=== PATIENT | female | born 1980 | race Two or more races ===

== ENCOUNTER 2016-09-22 12:53 | Emergency (ER) | payer OTHER ==
[~2016-09-22 12:53] MED LIST: BENTYL20 MG PO; PHENERGAN25 MG PO
[2016-09-22 14:23] LABS: URINE SOURCE CLEAN CATCH
[2016-09-22 14:27] LABS: URINE APPEARANCE TURBID; URINE BILIRUBIN NEG (NEG); URINE BLOOD NEG (NEG); URINE COLOR YELLOW; URINE GLUCOSE NEG (NEG); URINE KETONE NEG (NEG); URINE LEUKOCYTE ESTERASE 2+ (NEG); URINE NITRATE NEG (NEG); URINE PROTEIN NEG (NEG); URINE SPECIFIC GRAVITY 1.019 (1.003-1.035)
[2016-09-22 14:29] LABS: CULTURE INDICATED? YES; URINE BACTERIA AUWI 2+ (NEGATIVE); URINE SQUAMOUS EPITHELIAL CELL MOD /[HPF]
== END 2016-09-22 15:23 | disposition home or self-care (01) ==
LOC: CFTX 12:53 → CED 12:53 → CFTX 14:20
PROVIDERS: Nurse Practitioner
DX: J20.9 Acute bronchitis, unspecified (principal); H66.93 Otitis media, unspecified, bilateral; N39.0 Urinary tract infection, site not specified; J45.909 Unspecified asthma, uncomplicated; G40.909 Epilepsy, unspecified, not intractable, without status epilepticus; Z88.0 Allergy status to penicillin; Z88.1 Allergy status to other antibiotic agents; F17.210 Nicotine dependence, cigarettes, uncomplicated
CPT/HCPCS: 81003; 84703; 87086; 87651; 99283